=== PATIENT | male | born 1925 | race Asian ===

== ENCOUNTER 2017-02-28 16:11 | Inpatient (IN) | payer OTHER, MEDICAID ==
[~2017-02-28] VITALS: Ht 165.1 cm; Wt 70.3 kg
[2017-02-28 16:12] VITALS: BP_SYST 156
[2017-02-28] MEDS ORDERED: DIPH-TET-PERTUS Vaccine 0.5 ML VIAL (ADACEL) IM ONE (17:00)
[2017-02-28] MEDS ORDERED: BACITRACIN 1 GM OINT TP ONE (17:00)
[2017-02-28 17:27] LABS: HEMATOCRIT 39.2 % (36-54); HEMOGLOBIN 13.2 g/dL (14.0-18.0); LYMPHOCYTES # (AUTO) 0.5 K/uL (1.0-5.5); LYMPHOCYTES % (AUTO) 5.1 % (20.5-51.5); MEAN CORPUSCULAR HEMOGLOBIN 34 pg (27-31); MEAN CORPUSCULAR HGB CONC 34 % (32-36); MEAN CORPUSCULAR VOLUME 100 fL (79.0-98.0); MONOCYTES # (AUTO) 0.6 K/uL (0.0-1.0); PLATELET COUNT (AUTO) 138 K/uL (130-430); RED BLOOD CELL COUNT(AUTO) 3.91 MIL/uL (4.2-6.2); RED CELL DISTRIBUTION WIDTH 14.4 % (9.0-15.0); WHITE BLOOD COUNT (AUTO) 9.4 K/uL (4.8-10.8)
[2017-02-28 17:31] LABS: NEUTROPHILS # (AUTO) 8.3 K/uL (1.8-7.7); NEUTROPHILS % (AUTO) 88.9 % (40.0-70.0)
[2017-02-28 17:39] LABS: ANION GAP 11 (5-15); CALCIUM 9.6 mg/dL (8.4-11.0); CHLORIDE 98 mmol/L (98-107); CREATININE 1.11 mg/dL (0.55-1.30); GLUCOSE 107 mg/dL (70-99); POTASSIUM 4.5 mmol/L (3.5-5.1); SODIUM SERUM 136 mmol/L (136-145); UREA NITROGEN, BLOOD 20 mg/dL (8-21)
[2017-02-28 17:44] LABS: ALANINE AMINOTRANSFERASE 29 U/L (12-78); ALBUMIN 4.2 g/dL (3.4-4.8); ASPARTATE AMINOTRANSFERASE 47 U/L (10-37); TOTAL BILIRUBIN 1.2 mg/dL (0.0-1.0)
[2017-02-28 17:52] LABS: BILIRUBIN,URINE NEGATIVE (NEGATIVE); BLOOD, URINE 3+ (NEGATIVE); CLARITY/URINE CLEAR (CLEAR); COLOR,URINE YELLOW (YELLOW); GLUCOSE,URINE NEGATIVE (NEGATIVE); KETONES,URINE 1+ (NEGATIVE); LEUKOCYTE ESTERASE ,URINE NEGATIVE (NEGATIVE); NITRITE, URINE NEGATIVE (NEGATIVE); PROTEIN URINE 2+ (NEGATIVE); UROBILINOGEN,URINE 0.2 (0.2-1.0)
[2017-02-28] MEDS ORDERED: LIP10 PO (18:00)
[2017-02-28] MEDS ORDERED: CAT.1 PO (18:00)
[2017-02-28] MEDS ORDERED: IRBE150T48 PO (18:00)
[2017-02-28] MEDS ORDERED: AMLO5TAB4 PO (18:00)
[2017-02-28] MEDS ORDERED: ALLO300T2 PO (18:00)
[2017-02-28 18:11] LABS: BACTERIA,URINE FEW /HPF (None Seen); MUCUS,URINE None Seen /LPF (None Seen); WBC,URINE 0-3 /HPF (0-3)
[2017-02-28] MEDS ORDERED: ASPIRIN 325 MG TABLET PO ONE (18:45)
[2017-02-28 19:15] VITALS: BP_SYST 151
[2017-02-28 21:00] VITALS: BP_SYST 141
[2017-02-28] MEDS: cloNIDine HCL 0.1 MG TABLET PO SCH (21:21)
[2017-02-28 23:49] VITALS: BP_SYST 149
[2017-03-01 05:00] VITALS: BP_SYST 158
[2017-03-01 08:00] VITALS: BP_SYST 150
[2017-03-01] MEDS: ALLOPURINOL 300 MG TABLET (ZYLOPRIM) PO SCH (08:19)
[2017-03-01] MEDS: LOSARTAN POTASSIUM 50 MG TABLET (COZAAR) PO SCH (08:19)
[2017-03-01] MEDS: cloNIDine HCL 0.1 MG TABLET PO SCH ×2 (08:19→21:13)
[2017-03-01] MEDS: amLODIPine BESYLATE 5 MG TABLET PO SCH (08:20)
[2017-03-01] MEDS ORDERED: ATORVASTATIN 10 MG TABLET PO SCH (09:00)
[2017-03-01 09:36] LABS: BASOPHILS % (AUTO) 0.4 % (0.0-2.0); EOSINOPHILS % (AUTO) 0.3 % (0.0-4.0); HEMATOCRIT 41.2 % (36-54); HEMOGLOBIN 13.9 g/dL (14.0-18.0); LYMPHOCYTES # (AUTO) 0.9 K/uL (1.0-5.5); LYMPHOCYTES % (AUTO) 13.2 % (20.5-51.5); MEAN CORPUSCULAR HEMOGLOBIN 34 pg (27-31); MEAN CORPUSCULAR HGB CONC 34 % (32-36); MEAN CORPUSCULAR VOLUME 101 fL (79.0-98.0); MONOCYTES # (AUTO) 0.4 K/uL (0.0-1.0); MONOCYTES % (AUTO) 5.4 % (1.7-9.3); NEUTROPHILS # (AUTO) 5.9 K/uL (1.8-7.7); NEUTROPHILS % (AUTO) 80.7 % (40.0-70.0); PLATELET COUNT (AUTO) 113 K/uL (130-430); RED BLOOD CELL COUNT(AUTO) 4.07 MIL/uL (4.2-6.2); RED CELL DISTRIBUTION WIDTH 14.4 % (9.0-15.0); WHITE BLOOD COUNT (AUTO) 7.2 K/uL (4.8-10.8)
[2017-03-01 10:00] LABS: ANION GAP 11 (5-15); CALCIUM 9.4 mg/dL (8.4-11.0); CHLORIDE 99 mmol/L (98-107); CREATININE 1.38 mg/dL (0.55-1.30); GLUCOSE 203 mg/dL (70-99); POTASSIUM 3.7 mmol/L (3.5-5.1); SODIUM SERUM 137 mmol/L (136-145); UREA NITROGEN, BLOOD 24 mg/dL (8-21)
[2017-03-01 10:20] LABS: ALANINE AMINOTRANSFERASE 31 U/L (12-78); ALBUMIN 3.7 g/dL (3.4-4.8); ASPARTATE AMINOTRANSFERASE 56 U/L (10-37); TOTAL BILIRUBIN 0.9 mg/dL (0.0-1.0)
[2017-03-01 12:00] VITALS: BP_SYST 148
[2017-03-01 16:17] VITALS: BP_SYST 139
[2017-03-01 19:55] VITALS: BP_SYST 124
[2017-03-02] VITALS (7 sets, daily range): BP systolic 94–155
[2017-03-02] MEDS: ASPIRIN 81 MG TAB.CHEW PO SCH (09:09)
[2017-03-02] MEDS: ALLOPURINOL 300 MG TABLET (ZYLOPRIM) PO SCH (09:10)
[2017-03-02] MEDS: ATORVASTATIN 20 MG TABLET PO SCH (09:10)
[2017-03-02] MEDS: amLODIPine BESYLATE 5 MG TABLET PO SCH (09:10)
[2017-03-02] MEDS: cloNIDine HCL 0.1 MG TABLET PO SCH ×2 (09:11→20:35)
[2017-03-02] MEDS: LOSARTAN POTASSIUM 50 MG TABLET (COZAAR) PO SCH (09:11)
[2017-03-02 09:36] LABS: CHOLESTEROL 171 mg/dL (<200); HDL CHOLESTEROL 84 mg/dL (>45); LDL CHOLESTEROL 84 mg/dL (<100); TRIGLYCERIDES 71 mg/dL (30-150)
[2017-03-02] MEDS ORDERED: ECO325 PO (11:02)
[2017-03-03 03:47] VITALS: BP_SYST 141
[2017-03-03 07:13] LABS: BASOPHILS % (AUTO) 0.3 % (0.0-2.0); EOSINOPHILS # (AUTO) 0.1 K/uL (0.0-0.4); EOSINOPHILS % (AUTO) 1.8 % (0.0-4.0); HEMATOCRIT 42.8 % (36-54); HEMOGLOBIN 14.1 g/dL (14.0-18.0); LYMPHOCYTES # (AUTO) 1.1 K/uL (1.0-5.5); LYMPHOCYTES % (AUTO) 18.7 % (20.5-51.5); MEAN CORPUSCULAR HEMOGLOBIN 34 pg (27-31); MEAN CORPUSCULAR HGB CONC 33 % (32-36); MEAN CORPUSCULAR VOLUME 102 fL (79.0-98.0); MONOCYTES # (AUTO) 0.6 K/uL (0.0-1.0); MONOCYTES % (AUTO) 9.2 % (1.7-9.3); NEUTROPHILS # (AUTO) 4.3 K/uL (1.8-7.7); PLATELET COUNT (AUTO) 133 K/uL (130-430); RED BLOOD CELL COUNT(AUTO) 4.19 MIL/uL (4.2-6.2); RED CELL DISTRIBUTION WIDTH 15.2 % (9.0-15.0); WHITE BLOOD COUNT (AUTO) 6.1 K/uL (4.8-10.8)
[2017-03-03 07:32] LABS: ALANINE AMINOTRANSFERASE 39 U/L (12-78); ALBUMIN 3.4 g/dL (3.4-4.8); ANION GAP 7 (5-15); ASPARTATE AMINOTRANSFERASE 58 U/L (10-37); CALCIUM 8.6 mg/dL (8.4-11.0); CHLORIDE 103 mmol/L (98-107); CREATININE 0.88 mg/dL (0.55-1.30); GLUCOSE 115 mg/dL (70-99); POTASSIUM 3.4 mmol/L (3.5-5.1); SODIUM SERUM 138 mmol/L (136-145); TOTAL BILIRUBIN 0.8 mg/dL (0.0-1.0); UREA NITROGEN, BLOOD 20 mg/dL (8-21)
[2017-03-03 08:00] VITALS: BP_SYST 162
[2017-03-03] MEDS: ALLOPURINOL 300 MG TABLET (ZYLOPRIM) PO SCH (08:39)
[2017-03-03] MEDS: cloNIDine HCL 0.1 MG TABLET PO SCH ×2 (08:39→20:35)
[2017-03-03] MEDS: ASPIRIN 81 MG TAB.CHEW PO SCH (08:39)
[2017-03-03] MEDS: ATORVASTATIN 20 MG TABLET PO SCH (08:39)
[2017-03-03] MEDS: LOSARTAN POTASSIUM 50 MG TABLET (COZAAR) PO SCH (08:40)
[2017-03-03] MEDS: amLODIPine BESYLATE 5 MG TABLET PO SCH (08:40)
[2017-03-03 13:05] VITALS: BP_SYST 123
[2017-03-03] MEDS ORDERED: POTASSIUM CHLORIDE 20 MEQ TAB.PRT.SR PO PRN (14:30)
[2017-03-03] MEDS ORDERED: HYDROcodone/ACETAMIN 10-325 MG TAB PO PRN (14:30)
[2017-03-03] MEDS ORDERED: ZOLPIDEM TARTRATE 5 MG TABLET PO PRN (14:30)
[2017-03-03] MEDS ORDERED: LORazepam 2 MG/ML VIAL IVP PRN (14:30)
[2017-03-03] MEDS ORDERED: BISACODYL 10 MG/SUPPOSITORY RC PRN (14:30)
[2017-03-03] MEDS ORDERED: SIMETHICONE 80 MG TAB.CHEW PO PRN (14:30)
[2017-03-03 16:26] VITALS: BP_SYST 147
[2017-03-03 19:05] VITALS: BP_SYST 154
[2017-03-03 23:20] VITALS: BP_SYST 135
[2017-03-04 04:32] VITALS: BP_SYST 157
[2017-03-04 07:22] LABS: BASOPHILS % (AUTO) 0.7 % (0.0-2.0); EOSINOPHILS # (AUTO) 0.1 K/uL (0.0-0.4); EOSINOPHILS % (AUTO) 2.1 % (0.0-4.0); HEMATOCRIT 42.1 % (36-54); LYMPHOCYTES % (AUTO) 15.1 % (20.5-51.5); MEAN CORPUSCULAR HEMOGLOBIN 33 pg (27-31); MEAN CORPUSCULAR HGB CONC 33 % (32-36); MEAN CORPUSCULAR VOLUME 101 fL (79.0-98.0); MONOCYTES # (AUTO) 0.6 K/uL (0.0-1.0); MONOCYTES % (AUTO) 8.4 % (1.7-9.3); NEUTROPHILS # (AUTO) 4.9 K/uL (1.8-7.7); NEUTROPHILS % (AUTO) 73.7 % (40.0-70.0); PLATELET COUNT (AUTO) 131 K/uL (130-430); RED BLOOD CELL COUNT(AUTO) 4.19 MIL/uL (4.2-6.2); RED CELL DISTRIBUTION WIDTH 14.9 % (9.0-15.0); WHITE BLOOD COUNT (AUTO) 6.7 K/uL (4.8-10.8)
[2017-03-04 07:46] LABS: ANION GAP 6 (5-15); CALCIUM 8.5 mg/dL (8.4-11.0); CHLORIDE 102 mmol/L (98-107); CREATININE 0.95 mg/dL (0.55-1.30); GLUCOSE 113 mg/dL (70-99); POTASSIUM 4.1 mmol/L (3.5-5.1); SODIUM SERUM 136 mmol/L (136-145); UREA NITROGEN, BLOOD 17 mg/dL (8-21)
[2017-03-04 08:00] VITALS: BP_SYST 154
[2017-03-04] MEDS: ATORVASTATIN 20 MG TABLET PO SCH (08:40)
[2017-03-04] MEDS: ALLOPURINOL 300 MG TABLET (ZYLOPRIM) PO SCH (08:40)
[2017-03-04] MEDS: cloNIDine HCL 0.1 MG TABLET PO SCH ×2 (08:41→20:55)
[2017-03-04] MEDS: ASPIRIN 81 MG TAB.CHEW PO SCH (08:41)
[2017-03-04] MEDS: LOSARTAN POTASSIUM 50 MG TABLET (COZAAR) PO SCH (08:42)
[2017-03-04] MEDS: amLODIPine BESYLATE 5 MG TABLET PO SCH (08:43)
[2017-03-04 11:50] VITALS: BP_SYST 107
[2017-03-04 16:26] VITALS: BP_SYST 113
[2017-03-04 19:00] VITALS: BP_SYST 142
[2017-03-04 20:00] VITALS: BP_SYST 147
[2017-03-05 00:01] VITALS: BP_SYST 139
[2017-03-05 04:15] VITALS: BP_SYST 149
[2017-03-05 07:26] LABS: BASOPHILS % (AUTO) 0.6 % (0.0-2.0); EOSINOPHILS # (AUTO) 0.1 K/uL (0.0-0.4); EOSINOPHILS % (AUTO) 2.1 % (0.0-4.0); HEMATOCRIT 43.3 % (36-54); HEMOGLOBIN 14.5 g/dL (14.0-18.0); LYMPHOCYTES # (AUTO) 1.5 K/uL (1.0-5.5); LYMPHOCYTES % (AUTO) 23.4 % (20.5-51.5); MEAN CORPUSCULAR HEMOGLOBIN 34 pg (27-31); MEAN CORPUSCULAR HGB CONC 34 % (32-36); MEAN CORPUSCULAR VOLUME 101 fL (79.0-98.0); MONOCYTES # (AUTO) 0.5 K/uL (0.0-1.0); MONOCYTES % (AUTO) 7.4 % (1.7-9.3); NEUTROPHILS # (AUTO) 4.2 K/uL (1.8-7.7); NEUTROPHILS % (AUTO) 66.5 % (40.0-70.0); PLATELET COUNT (AUTO) 136 K/uL (130-430); WHITE BLOOD COUNT (AUTO) 6.3 K/uL (4.8-10.8)
[2017-03-05 07:52] LABS: ANION GAP 8 (5-15); CHLORIDE 102 mmol/L (98-107); CREATININE 0.95 mg/dL (0.55-1.30); GLUCOSE 110 mg/dL (70-99); POTASSIUM 3.9 mmol/L (3.5-5.1); SODIUM SERUM 137 mmol/L (136-145); UREA NITROGEN, BLOOD 17 mg/dL (8-21)
[2017-03-05 08:00] VITALS: BP_SYST 165
[2017-03-05] MEDS: ALLOPURINOL 300 MG TABLET (ZYLOPRIM) PO SCH (08:27)
[2017-03-05] MEDS: cloNIDine HCL 0.1 MG TABLET PO SCH (08:27)
[2017-03-05] MEDS: LOSARTAN POTASSIUM 50 MG TABLET (COZAAR) PO SCH (08:28)
[2017-03-05] MEDS: amLODIPine BESYLATE 5 MG TABLET PO SCH (08:28)
[2017-03-05] MEDS: ASPIRIN 81 MG TAB.CHEW PO SCH (08:28)
[2017-03-05 08:53] VITALS: BP_SYST 111
[2017-03-05] MEDS ORDERED: ATORVASTATIN 10 MG TABLET PO SCH (09:00)
[2017-03-05 09:30] VITALS: BP_SYST 114
[2017-03-05 11:35] VITALS: BP_SYST 115
== END 2017-03-05 13:20 | DRG 73 ==
LOC: SED 16:11 → STU 18:40
PROVIDERS: ADMIT Internal Medicine Hospice and Palliative Medicine; ATTEND Internal Medicine Hospice and Palliative Medicine
DX: G90.9 Disorder of the autonomic nervous system, unspecified (principal); I21.A1 Myocardial infarction type 2; F03.90 Unspecified dementia, unspecified severity, without behavioral disturbance, psychotic disturbance, mood disturbance, and anxiety; Z95.1 Presence of aortocoronary bypass graft; E78.5 Hyperlipidemia, unspecified; W19.XXXA Unspecified fall, initial encounter; I10 Essential (primary) hypertension; I25.10 Atherosclerotic heart disease of native coronary artery without angina pectoris; Z95.0 Presence of cardiac pacemaker; Y93.89 Activity, other specified; Y92.89 Other specified places as the place of occurrence of the external cause; Y99.8 Other external cause status; Z79.899 Other long term (current) drug therapy
CPT/HCPCS: 36415; 70450-TC; 71010; 80048; 80053; 80061; 81000-TC; 83735-TC; 84100-TC; 84484; 85025; 90715; 93005; 93306; 96372; 97110-GP; 97116-GP; 97530-GP; 99291